=== PATIENT | male | born 1985 | race Caucasian/White ===

== ENCOUNTER 2017-06-22 15:14 | Emergency (ER) | payer OTHER ==
[~2017-06-22] VITALS: Ht 177.8 cm; Wt 99.8 kg
[2017-06-22 15:25] VITALS: BP 143/76
[2017-06-22] MEDS ORDERED: PREDNISONE 10 M10 M1 PO (15:40)
== END 2017-06-22 15:47 | disposition home or self-care (01) ==
LOC: M.ERS 15:14
DX: L23.7 Allergic contact dermatitis due to plants, except food (principal); F17.200 Nicotine dependence, unspecified, uncomplicated